=== PATIENT | female | born 1990 | race Caucasian/White ===

== ENCOUNTER 2020-07-22 15:11 | Outpatient (CLI) | payer OTHER ==
--- NOTE | 2020-07-22 17:44 | Ultrasound Report ---
PROCEDURE: Head or Neck Soft Tissue INDICATIONS: THYROMEGALY TECHNIQUE: Real-time scanning was performed of the thyroid gland, with image documentation. COMPARISON: None FINDINGS: Right: Thyroid lobe measures 5.2 x 1.0 x 1.7 cm, and is homogeneous in echotexture. Left: Thyroid lobe measures 5.3 x 1.0 x 1.4 cm, and is homogenous in echotexture. Isthmus: 0.1 mm thick. Bilateral lymph nodes are noted largest on the left measuring 15 x 4 x 8 mm. IMPRESSION: 1. Slightly prominent thyroid gland. No focal nodules are identified. 2. Normal-appearing lymph nodes. Reviewed by: Sue Valadez MD on 07/22/2020 5:43 PM PST Approved by: Sue Valadez MD on 07/22/2020 5:43 PM PST Station ID: [id number]
== END 2020-07-22 15:12 | disposition home or self-care (01) ==
LOC: DI 15:11
PROVIDERS: ATTEND Physician Assistant
DX: E01.0 Iodine-deficiency related diffuse (endemic) goiter (principal)
CPT/HCPCS: 76536

== ENCOUNTER 2023-08-19 17:48 | Outpatient (CLI) | payer BC ==
--- NOTE | 2023-08-20 08:57 | XRAY Report ---
PROCEDURE: Lumbar Spine Complete INDICATIONS: BACK PAIN,LUMBOSACRAL,CHRONIC TECHNIQUE: 4 views of the lumbar spine were acquired. COMPARISON: None. FINDINGS: Bones: 5 [id number] vertebrae are present. Small riblets noted at T12. There is normal bony ali gnment. No vertebral body compression fractures. No suspicious bony lesions. Mild spondylitic soares ges noted at L4-5 and L5-S1. Suggestion of L5 pars defect. No significant spondylolisthesis. Soft tissues: Overlying bowel gas pattern is normal. No suspicious soft tissue calcifications. IMPRESSION: Lumbar spine without acute osseous abnormalities. Lower lumbar spondylosis. Suspected L5 pars defect without significant spondylolisthesis. Reviewed by: Franklyn Giang MD on 08/20/2023 8:56 AM PST Approved by: Franklyn Giang MD on 08/20/2023 8:56 AM PST Station ID: [id number]
--- NOTE | 2023-08-20 08:58 | XRAY Report ---
PROCEDURE: Hip w/Pelvis 2-3V RT INDICATIONS: HIP PAIN,RIGHT TECHNIQUE: AP pelvis with lateral view(s) of the right hip(s). COMPARISON: None. FINDINGS: Bones: No fractures or dislocations. No suspicious bony lesions. Minimal degenerative changes of the bilateral hips seen on the frontal view. No significant joint space loss visualized on either the frontal view or frog-leg lateral view of the right hip. Soft tissues: No suspicious soft tissue calcifications or masses. IMPRESSION: No acute bony abnormality. Minimal right hip osteoarthrosis. Reviewed by: Franklyn Giang MD on 08/20/2023 8:57 AM [facility] Approved by: Franklyn Giang MD on 08/20/2023 8:57 AM PST Station ID: [id number]
== END 2023-08-19 17:49 | disposition home or self-care (01) ==
LOC: DI 17:48
PROVIDERS: ATTEND Nurse Practitioner
DX: M47.816 Spondylosis without myelopathy or radiculopathy, lumbar region (principal); M47.817 Spondylosis without myelopathy or radiculopathy, lumbosacral region; G89.29 Other chronic pain; M16.11 Unilateral primary osteoarthritis, right hip

== ENCOUNTER 2023-08-30 17:12 | Outpatient (CLI) | payer BC ==
--- NOTE | 2023-08-31 08:13 | MRI Report ---
PROCEDURE: LUMBAR SPINE WO INDICATIONS: LUMBOSACRAL BACK PAIN TECHNIQUE: Noncontrast sagittal T1 spin echo and T2 fast echo, sagittal STIR, axial T1 and T2 fast spin echo thr ough the lumbar spine. In cases with scoliosis, additional coronal T2 fast spin echo may be performe d. COMPARISON: Lumbar spine plain films dated 08/19/2023. FINDINGS: Image quality: Excellent. Alignment and Curvature: There is normal bony alignment. Bone Marrow: Marrow is of normal overall signal. No acute vertebral body compression fractures. Spinal Cord: Conus medullaris terminates at the L1-L2 level. Visualized cord demonstrates normal si gnal and size. Paraspinous Soft Tissues: No paravertebral masses. T12-L1: Normal in appearance. L1-L2: Normal in appearance. L2-L3: Minimal disc bulge. Mild facet hypertrophy. No canal stenosis or foraminal stenosis. L3-L4: Minimal disc bulge. Mild facet hypertrophy. No canal stenosis or foraminal stenosis. L4-L5: There is broad-based mild right paracentral disc protrusion with superimposed small right fo raminal disc protrusion. There is mild posterior deviation of the right L5 nerve root in the right la teral recess. There is a degree of impingement of the right L4 nerve root in the right foramen. Bilat eral facet hypertrophy. No central canal stenosis. Mild left foraminal stenosis. L5-S1: Mild disc bulge. Facet hypertrophy. No canal stenosis or significant foraminal stenosis. IMPRESSION: 1. There is multilevel underlying facet arthropathy. 2. The significant level is L4-L5. There is a broad-based mild right paracentral disc protrusion with superimposed small right foraminal disc protrusion. The right L5 nerve root is mildly deviated in th e right lateral recess. There is impingement on the right L4 nerve root in the right foramen. Reviewed by: Simon Hernandez MD on 08/31/2023 8:12 AM PST Approved by: Simon Hernandez MD on 08/31/2023 8:12 AM PST Station ID: [id number]
== END 2023-08-30 17:13 | disposition home or self-care (01) ==
LOC: DI 17:12
PROVIDERS: ATTEND Nurse Practitioner
DX: M54.31 Sciatica, right side (principal); M47.816 Spondylosis without myelopathy or radiculopathy, lumbar region; M51.26 Other intervertebral disc displacement, lumbar region